=== PATIENT | male | born 1945 | race Caucasian/White ===

== ENCOUNTER 2016-05-11 06:12 | Day surgery (SDC) | payer MEDICARE, OTHER ==
[~2016-05-11] VITALS: Ht 180.3 cm; Wt 76.9 kg
[~2016-05-11 06:12] MED LIST: CHOL100047 PO; FEXO180T94 PO; FINA5TAB42 PO; OMEP40CA52 PO; SENN-125 PO; SILD100T PO; TAMS0.4C47 PO
--- OUTSIDE RECORDS SUMMARY | 2016-05-11 06:16 | XMS REPORT | Continuity of Care Document ---
Author Author [facility] Organization [facility] Address Unknown Phone Unavailable Support Name Relationship Address Phone AMANDA CASTILLO MD Caregiver Libia RIOS [address] [place] [phone] VAN GARCIA MD Caregiver [facility] [address] [place] [address] [phone] LEONARDO CASIANO Next Of Kin [address] [place], [place] [phone] Insurance Providers Payer Name Policy Number Subscriber Name Relationship Medicare [id number] Ta Casiano 18 Self [place] [id number] Casiano 18 Self Advance Directives Directive Response Recorded Date/Time Ordered Resuscitation Status Full Code 12/19/13 12:15pm Resuscitation Documents on File No 12/19/13 11:57am Problems No known problems or medical conditions. Medications Medication Dose Route Sig Days/Qty Instructions Order Date Discontinued Date Status Omeprazole 20 Mg PO DAILY 90 Qty 12/19/13 Active Tamsulosin HCl 0.4 Mg PO BEDTIME 90 Qty 12/19/13 Active Finasteride 5 Mg PO DAILY 90 Qty 12/19/13 Active Sildenafil Citrate 100 Mg PO NEEDED 10 Qty 12/19/13 Active Sennosides/Docusate Sodium 2 Tab PO TWICE A DAY PRN CONSTIPATION 01/21 Active Cholecalciferol (Vitamin D3) 2 Tab PO DAILY PRN PRN ORDERS 12/20/13 Active Hydrocodone/Acetaminophen 1-2 Tab PO EVERY 4-6 HOURS PRN PAIN 15 Qty Active Social History Social History Problem Response Recorded Date/Time Smoking Status Former smoker 12/20/2013 6:28am When did patient STOP smoking? SMOKED FOR 8-10 YEARS 12/20/2013 6:28am Chewing Tobacco Status No 12/20/2013 6:28am Hx Substance Use No 12/20/2013 6:28am Hx Alcohol Use Y SOCIALLY 12/20/2013 6:28am Has the pt used tobacco in the last 12 months No 12/20/2013 6:28am Hospital Discharge Instructions No hospital discharge instructions. Plan of Care No plan of care. Functional Status No functional status results. Allergies, Adverse Reactions, Alerts Allergen Type Severity Reaction Status Last Updated No Known Allergies Active 12/19/13 Immunizations Name Given Type Hx Influenza Vaccination Y FALL 2013 Historical Hx Pneumococcal Vaccination No Historical Hx Influenza Vaccination Y FALL 2013 Historical Vital Signs Acute Vital Signs Vital Response Date/Time Temperature (Fahrenheit) 98.7 deg F (96.8 - 99.1) Temperature (Calculated Celsius) 37.48975 degrees C (36.0 - 37.3) Temperature Source Temporal Pulse Rate (adult) 60 bpm (60 - 100) Respiratory Rate 16 breaths/min (10 - 20) O2 Sat by Pulse Oximetry 97 % (90 - 100) Oxygen Delivery Method Room Air Blood Pressure 133/77 mm Hg Blood Pressure Source Automatic Cuff Height 5 ft 11 in Weight 180 lb Body Mass Index 25.0 kg/m^2 Results Test Source Date Result Interp. Ref. Range Comments Immature Granulocyte # (Auto) December 20, 2013 6:21am 0.01 T/MM3 N 0.00 -0.03 COMMENT PRE-OP WILL CALL Basophils # (Auto) December 20, 2013 6:21am 0.1 T/MM3 N 0-0.2 COMMENT PRE-OP WILL CALL Eosinophils # (Auto) December 20, 2013 6:21am 0.5 T/MM3 N 0-0.5 COMMENT PRE-OP WILL CALL Monocytes # (Auto) December 20, 2013 6:21am 0.7 T/MM3 N 0-0.8 COMMENT PRE-OP WILL CALL Lymphocytes # (Auto) December 20, 2013 6:21am 1.5 T/MM3 N 1-4.8 COMMENT PRE-OP WILL CALL Neutrophils # (Auto) December 20, 2013 6:21am 2.8 T/MM3 N 1.8-7.7 COMMENT PRE-OP WILL CALL Immature Granulocyte % (Auto) December 20, 2013 6:21am 0.2 % N 0.0-0.5 COMMENT PRE-OP WILL CALL Basophils (%) (Auto) December 20, 2013 6:21am 2.1 % H 0-2 COMMENT PRE- OP WILL CALL Eosinophils (%) (Auto) December 20, 2013 6:21am 9.3 % H 0-4 COMMENT PRE -OP WILL CALL Monocytes (%) (Auto) December 20, 2013 6:21am 12.5 % H 0-9.0 COMMENT PRE-OP WILL CALL Lymphocytes (%) (Auto) December 20, 2013 6:21am 26.7 % N 23-45 COMMENT PRE-OP WILL CALL Neutrophils (%) (Auto) December 20, 2013 6:21am 49.2 % N 33-66 COMMENT PRE-OP WILL CALL Mean Platelet Volume December 20, 2013 6:21am 9.3 UM3 L 9.4-12.4 COMMENT PRE-OP WILL CALL Platelet Count December 20, 2013 6:21am 195 T/MM3 N 130-400 COMMENT PRE -OP WILL CALL RDW Standard Deviation December 20, 2013 6:21am 45.8 FL N 36.9-50.2 COMMENT PRE-OP WILL CALL Mean Corpuscular Hemoglobin Concent December 20, 2013 6:21am 33.6 GM/DL N 31-37 COMMENT PRE-OP WILL CALL Mean Corpuscular Hemoglobin December 20, 2013 6:21am 31.8 UUG N 26-34 COMMENT PRE-OP WILL CALL Mean Corpuscular Volume December 20, 2013 6:21am 94.7 UM3 N 80-100 COMMENT PRE-OP WILL CALL Hematocrit December 20, 2013 6:21am 46.7 % N 41-53 COMMENT PRE-OP WILL CALL Hemoglobin December 20, 2013 6:21am 15.7 GM/DL N 13.5-17.5 COMMENT PRE- OP WILL CALL Red Blood Count December 20, 2013 6:21am 4.93 M/MM3 N 4.50-5.90 COMMENT PRE-OP WILL CALL White Blood Count December 20, 2013 6:21am 5.6 T/MM3 N 4.5-11.0 COMMENT PRE-OP WILL CALL Procedures Procedure Status Date Provider(s) Inguinal hernia repair completed 12/20/13 VAN GARCIA MD
[2016-05-11 06:37] VITALS: BP 146/75; PULSE 77; RESP 19; TEMP 97.6; O2SAT 99; Ht 180.3 cm; Wt 76.9 kg
[2016-05-11] MEDS ORDERED: PSYL0.4C2 (06:42)
[2016-05-11] MEDS ORDERED: LIDOCAINE 1% (10mg/ml) 2ml SDV INJ ONE (07:00)
[2016-05-11] MEDS ORDERED: LR 1,000 ML IV SCH (07:00)
[2016-05-11] MEDS ORDERED: LIDOCAINE VISCOUS 2% Oral Soln 15ml UD ONE (07:10)
[2016-05-11] MEDS ORDERED: BENZOCAINE 20% Top. Anesth. SPRAY UD ONE (07:10)
[2016-05-11] MEDS ORDERED: MIDAZOLAM 2mg/2ml INJECTION ONE (07:27)
[2016-05-11] MEDS ORDERED: FENTANYL 100mcg/2ml INJECTION ONE (07:32)
[2016-05-11] MEDS ORDERED: PROPOFOL 500mg 50 ML IV ONE (07:37)
[2016-05-11 07:57] VITALS: BP 111/71; PULSE 73; RESP 14; TEMP 97.7; O2SAT 96
[2016-05-11 08:00] VITALS: BP 111/71; PULSE 73; RESP 14; TEMP 97.7; O2SAT 96
--- NOTE | 2016-05-11 08:05 | ANESPREOP ---
Anesthesia Record Date and Time DATE: 05/11/16 TIME: 709 Proposed Surgical Procedure EGD Allergies: Coded Allergies: No Known Allergies (Unverified , 12/19/13) Ht/Wt/BMI Height: 5 ' 11.00 " Weight: 76.900 kg BMI: 23.7 kg/m2 Vital Signs Date Time Temp Pulse Resp B/P Pulse Ox O2 Delivery O2 Flow Rate FiO2 05/11/16 07:57 97.7 73 14 111/71 96 Room Air Medications Inpatient Medications Current Medications Medications (Trade) Dose Ordered Sig/Jose C Start Time Stop Time Status Last Admin Dose Admin Lactated Ringer's (Lactated Ringers) 1,000 ml @ 50 mls/hr Q20H 05/11/16 07:00 05/11/16 06:50 50 MLS/HR Cholecalciferol (Vitamin D3) (Vitamin D) 1,000 Unit Tablet, 2 TAB PO DAILY PRN for PRN ORDERS, (Reported) Last Taken: on 05/10/16 Fexofenadine HCl (Melissa Allergy) 180 Mg Tablet, 1 TAB PO DAILY PRN for ALLERY SYMPTOMS, (Reported) Do not drink Apple, [place], or Grapefruit juice within 4 hours of this medication, causes decreased absorption Finasteride (Finasteride) 5 Mg Tablet, 5 MG PO QOD, (Reported) Last Taken: on 05/09/16 Omeprazole (Omeprazole) 40 Mg Capsule.dr, 1 CAP PO DAILY, (Reported) Last Taken: on 05/11/16 0515 Psyllium Husk (Metamucil) 0.4 Gm Capsule, ( Reported) Last Taken: on 05/10/16 Sennosides/Docusate Sodium (Stool Softener Tablet) 1 Each Tablet, 2 TAB PO DAILY, (Reported) Last Taken: on 05/09/16 Sildenafil Citrate (Viagra) 100 Mg Tablet, 100 MG PO PRN, (Reported) Tamsulosin HCl (Tamsulosin HCl) 0.4 Mg Cap.er.24h, 0.4 MG PO QOD, (Reported) Last Taken: on 05/09/16 Discontinued Medications Omeprazole (Omeprazole) 20 Mg Capsule.dr, 20 MG PO DAILY, (Reported) Currently on Beta [place]: No Medical/Surgical History Anesthesia PMH: Reports: Cancer (SKIN CA - REMOVED), Hiatal Hernia (HX LAP ALEJANDRO), Reflux (OCCASIONALLY), Denies: *Diabetes, Anesthesia Reactions (NO AIRWAY ISSUES KNOWN), Arthritis, Clotting Problems, Glaucoma, Malignant Hyperthermia, Sleep Apnea, Thyroid Disease Smoking Status: Never smoker Use Chewing Tobacco?: No Substance Use Type: does not use Last Drink: hours (ago) (8) Past Surgical History Orthopedic Surgeries: Yes - R HIP PLATE AND BOLT Abdominal Surgeries: Yes - LAP ALEJANDRO Genitourinary Surgeries: Cardiac Surgeries: Endocrine Surgeries: Reproductive Surgeries: Yes - VASECTOMY Neurological Surgeries: Ear Surgeries: Nose Surgeries: Throat Surgeries: Other Surgeries: Yes - COLONOSCOPY,SKIN CA REMOVAL Anesthesia Adverse Reactions: FOUND none Family Hx of Anesthesia Advers: none Hx of Motion Sickness: No Physical Exam Respiratory: Lungs clear Cardiovascular: FOUND Regular rate, rhythm Airway Assessment Mallampati Score: II TMD: 3 Fingerbreadths Neck Extension: Good Overall Assessment: No Airway Concerns ASA: 2 Plan Anesthesia Plan: TIVA Discussion Discussed risks/options/alternatives of anesthesia and questions answered. Patient consents. Nursing pain assessment noted. Present: Spouse Attestation Statement Prior to the delivery of any anesthetic medication, I examined the patient, developed the plan, obtained the patient's consent and discussed the risk and benefits of the procedure with the patient/guardian. LESLI GONZALEZ CRNA May 11, 2016 08:05
--- NOTE | 2016-05-11 08:07 | ANESPO ---
Post-Op Note Date 05/11/16 Time: 08:05 Status Pt Participated in Evaluation: Pt participated in person Vital Signs Date Time Temp Pulse Resp B/P Pulse Ox O2 Delivery O2 Flow Rate FiO2 05/11/16 07:57 97.7 73 14 111/71 96 Room Air Respiratory Function: Airway patent Cardiovascular Function: Regular pulse Mental Status: Alert/oriented Pain Level Intensity: 0 Hydration: Other (waiting for PO due to spray) Complications during Recovery None apparent Follow-Up Instructions Instructions Per Surgeon LESLI GONZALEZ CRNA May 11, 2016 08:07
[2016-05-11 08:15] VITALS: BP 114/70; PULSE 68; RESP 15; O2SAT 95
[2016-05-11 08:30] VITALS: BP 130/74; PULSE 70; RESP 20; O2SAT 94
[2016-05-11 08:45] VITALS: BP 141/80; PULSE 60; RESP 20; O2SAT 96
--- NOTE | 2016-05-11 09:19 | OPNOTEF ---
DATE: 05/11/2016 PREOPERATIVE DIAGNOSIS: GERD and history of fundoplication with epigastric pain. POSTOPERATIVE DIAGNOSIS: Mild distal esophagitis. PROCEDURE: Esophagogastroduodenoscopy with biopsy for MILVIA testing from the antrum and biopsy for pathology from the distal esophagus. SURGEON: Kristofer Cueto MD PROCEDURE NOTE: The patient was placed in left lateral position. The gastroscope was introduced into the esophagus without difficulty and advanced into the second portion of the duodenum. The duodenal mucosa appeared normal throughout without evidence of hemorrhage, mass lesions, ulcerations or polyps. The scope was pulled back through the pyloric channel, which was clear, into the stomach with the antrum showing no significant abnormalities. A biopsy was taken from the antrum for MILVIA testing. The stomach did have a few very tiny fundal-type polyps. Otherwise, it had normal-appearing rugae with no significant abnormalities. The scope was retroflexed and the cardia and fundus visualized with no significant abnormalities. The stomach was suctioned and the scope pulled back into the esophagus with the EG junction noted at 38 cm. Note: Patient had typical fundoplication changes with mild irritation noted just at the EG junction at 38 cm. Two biopsies were taken in the area of inflammation and sent for pathology. The esophageal mucosa proximal to this showed no significant erosions, ulcerations, mass lesions or inflammatory changes. The posterior pharynx and vocal cords were clear. The scope was removed with the patient tolerating procedure well. He was stable post EGD. MTDD
== END 2016-05-11 08:50 | disposition home or self-care (01) ==
LOC: NSC 06:12
DX: K21.0 Gastro-esophageal reflux disease with esophagitis (principal); K31.7 Polyp of stomach and duodenum; Z98.890 Other specified postprocedural states; Z87.19 Personal history of other diseases of the digestive system; Z87.891 Personal history of nicotine dependence; Z79.899 Other long term (current) drug therapy
CPT/HCPCS: 43239; 87081; J2250; J3010; J7120